=== PATIENT | female | born 1995 | race Caucasian/White ===

== ENCOUNTER 2016-04-11 10:25 | Emergency (ER) | payer OTHER ==
[~2016-04-11] VITALS: Ht 162.6 cm; Wt 86.4 kg
[2016-04-11 10:29] VITALS: BP 125/80; PULSE 107; RESP 18; O2SAT 96
--- NOTE | 2016-04-11 10:47 | ED.REPORT ---
HPI-Dyspnea / Wheezing Date of Service Apr 11, 2016 ED Provider: Berny Guerra MD This is a 20 year old female presenting to the emergency department complaining of cough that began 2 days ago. Associated symptoms include subjective fever, chills, nasal congestion, productive cough with yellow sputum, ear aches, headache, sore throat, and shortness of breath. Denies neck pain, chest pain, myalgias, vomiting, nausea, abdominal pain, diarrhea, or constipation at this time. Nursing Notes Stated Complaint: COUGH/TROUBLE BREATHING/STUFFY NOSE Chief Complaint: FLU/Cold Symptoms Nursing Notes Reviewed: Yes Allergies: Coded Allergies: lanolin (Verified Allergy, Unknown, 04/11/16) latex (Verified Allergy, Unknown, 04/11/16) Scheduled Azithromycin (Zithromax (Z-Anmol)) 250 Mg Tablet 250 MG PO DIRECTED Take two tablets by mouth on day 1, then take one tablet daily on days 2 through 5. Promethazine DM Syrup (Promethazine DM Syrup) 118 Ml Syrup 5 ML PO HS General Time Seen by MD: 10:33 Chief Complaint Cough Hx Obtained From: Patient Arrived By: Walk-in Sudden in Onset?: Yes Onset Occurred: 2 days ago Symptom Duration: Since onset Severity: Current: No pain currently Pertinent Negative: Pt denies other symptoms Recent Healthcare: No recent doctor visit, No recent hospitalization Similar Sx Previous: No Past Medical History Past Medical History Denies Past Surgical History Denies Smoking History Never Smoker Ambulatory Status Independent Review of Systems Constitutional: Denies: Chills, Fever Respiratory: Reports: Non-productive cough, Denies: Shortness of breath Cardiovascular: Denies: Chest pain Complete sys rev & neg: except as marked. Physical Exam Initial Vital Signs Vital Signs (First) Date Time Temp Pulse Resp B/P Pulse Ox O2 Delivery O2 Flow Rate FiO2 04/11/16 10:29 36.4 107 18 125/80 96 Room Air Initial VS: Reviewed Head / Eyes: Atraumatic, Normocephalic, PERRL Abdomen / GI: Soft, Non-tender, No guarding, No rebound, No distention Extremities: Vascular intact, Neuro intact, No swelling, No tenderness Skin: Warm, Dry, No cyanosis Neurologic: Alert, Oriented, Nonfocal Psychiatric: Mood/affect normal, Behavior normal, Normal thought content General/Constitutional: Awake, Alert Neck: Atraumatic, Supple, No meningismus, Full range of motion, No swelling, Non-tender, No masses Respiratory / Chest: Breath sounds = bilat, No respiratory distress, No rales, No rhonchi, No wheezing Cardiovascular: Heart rate NL, Regular rhythm, Heart sounds NL, Peripheral circulation NL ENT: Tympanic membs NL Pharynx / Tonsils / Uvula: Positive: Pharyngeal erythema Re-Eval/Medical Decision Med Decision/Clinical Course 20-year-old female complaining of cough productive green sputum 2 days. History of bronchitis in past. Vital signs stable. Influenza negative. Given vital signs and exam and story I do not believe imaging or labs are warranted and I discussed with mother and she agrees. She would like a prescription for Z-Anmol that she may use if her symptoms persist. Likely viral URI versus bronchitis. I have given her prescription for Z-Anmol that she may use if symptoms worsen or persist. Return precautions given. Counseled Regarding: Diagnosis, Lab results, Need for follow-up, When/why to return to ED Discharge & Departure Impression: Primary Impression: Viral upper respiratory infection Disposition: Home Discharge Condition All VS Reviewed: Yes Condition: Stable Patient Instructions: Upper Respiratory Infection (ED) Additional Instructions: Take azithromycin as prescribed. Tylenol or ibuprofen as needed for pain fever control. Consume frequent clear fluids. Return to the emergency department with any new or worsening symptoms such as chest pain or shortness of breath. Referrals: Justin Serrano MD (PCP) Scribe Attestation Portions of this note were transcribed by Sonia Hansen. I, Dr. Guerra personally performed the history, physical exam and medical decision-making; I reviewed and confirmed the accuracy of the information in the transcribed note. Signed by: mikal Roldan. 04/11/2016, 15:00. Berny Guerra MD Apr 11, 2016 10:47 SONIA HANSEN Apr 11, 2016 10:49
[2016-04-11] MEDS ORDERED: AZIT250T4 PO (11:07)
[2016-04-11] MEDS ORDERED: D-ME118S8 PO (11:07)
== END 2016-04-11 12:19 | disposition home or self-care (01) ==
LOC: SED 10:25
DX: J06.9 Acute upper respiratory infection, unspecified (principal)